=== PATIENT | female | born 1995 | race Caucasian/White ===

== ENCOUNTER 2025-02-03 13:34 | Emergency (ER) | payer BC, MEDICAID, SELFPAY ==
[2025-02-03 13:34] VITALS: BMI 38.6
[2025-02-03 14:03] VITALS: BP 112/70; PULSE 104; RESP 18; TEMP 37.1; O2SAT 100
--- NOTE | 2025-02-03 14:18 | PD.EDFEVER ---
ED Fever RME/HPI General Chief Complaint: Fever Stated Complaint: FEVER WITH BACK PAIN Time Seen by Provider: 02/03/25 13:42 Arrival date/time: 02/03/25 13:34 This is a 30-year-old female that comes into the emergency room with complaints of fever and lower back pain that started yesterday. Patient has no other upper respiratory symptoms such as runny nose cough sore throat. Patient has had a history of a gastric sleeve surgery. Related Data Previous Rx's ?Medication ?Instructions ?Recorded sulfamethoxazole 800 1 tab PO BID #14 tabs 06/26/21 mg-trimethoprim 160 mg tablet (Bactrim DS) doxycycline hyclate 100 mg capsule 100 mg PO BID #14 caps 09/07/21 loperamide 2 mg capsule (Imodium 2 mg PO Q6H PRN loose stool #14 02/24/22 A-D) caps cephalexin 500 mg capsule 500 mg PO QID #12 caps 05/26/23 cephalexin 500 mg capsule 500 mg PO TID 7 days #21 caps 02/03/25 Allergies Allergy/AdvReac Type Severity Reaction Status Date / Time Penicillins Allergy Mild Vomiting Verified 02/03/25 13:37 morphine Allergy Verified 02/03/25 13:37 Course Orders Category Date Time Status Bedside COVID-19 Antigen Test NOW Care 02/03/25 14:17 Active Bedside Influenza A&B Antigen Test NOW Care 02/03/25 14:17 Completed HCG Qualitative,Urine Stat Lab 02/03/25 14:31 Completed Urinalysis, C/S if Indicated Stat Lab 02/03/25 14:31 Completed Urine Culture Stat Lab 02/03/25 14:31 Received Acetaminophen Tab [Tylenol ES Tab] Med 02/03/25 15:46 Discontinued 1,000 mg PO X1 ONE Ibuprofen Tab [Motrin Tab] Med 02/03/25 14:17 Discontinued 800 mg PO X1 ONE cefTRIAXone [Rocephin] 1,000 mg Med 02/03/25 15:47 Discontinued Lidocaine 1% 20 ml [Xylocaine 1% 20 ML] 2.1 ml IM X1 Vital Signs Vital signs: Vital Signs Temperature 98.8 F 02/03/25 14:03 Pulse Rate 104 H 02/03/25 14:03 Respiratory Rate 18 02/03/25 14:03 Blood Pressure 112/70 02/03/25 14:03 Pulse Oximetry (%) 100 06/01/25 14:03 Oxygen Delivery Method Room Air 02/03/25 14:03 Fever MDM Narrative MDM Narrative:: Patient's influenza positive for influenza AMB. Patient's UA shows positive for UTI. Patient does states she is allergic to penicillins but it was when she was a baby and she does not remember what happened as far as reaction. I talked to her about doing a dose of Rocephin. Patient agreed to dose of Rocephin. Will discharge patient on antibiotics. Patient is to follow-up with primary provider in 1 to 2 days. Max emergency room today due to worsening Medications / Prescriptions Medication administrations:: Medication Administration History Discontinued Medications Acetaminophen (Acetaminophen 500 Mg Tablet) 1,000 mg PO X1 ONE Stop: 02/03/25 15:47 Last Admin: 02/03/25 15:52 Dose: 1,000 mg Documented By: DHEERAJ Ceftriaxone Sodium 1,000 mg/ (Lidocaine HCl 2.1 ml) 0 mg IM X1 ONE Stop: 02/03/25 15:48 Last Admin: 02/03/25 15:54 Dose: 1,000 mg Documented By: DHEERAJ Comments: 2.1 ml lido Ibuprofen (Ibuprofen Tab 400 Mg Tablet) 800 mg PO X1 ONE Stop: 02/03/25 14:18 Last Admin: 02/03/25 14:24 Dose: Not Given Documented By: ASIA Non-Admin Reason: Patient Refused Discharge Plan Plan Patient Disposition: HOME (Self Care) Patient condition on transfer: Stable Prescriptions/Referrals Prescriptions/Med Rec: New cephalexin 500 mg capsule 500 mg PO TID 7 Days Qty: 21 0RF No Action sulfamethoxazole-trimethoprim [Bactrim DS] 800-160 mg tablet 1 tab PO BID Qty: 14 0RF doxycycline hyclate 100 mg capsule 100 mg PO BID Qty: 14 0RF loperamide [Imodium A-D] 2 mg capsule 2 mg PO Q6H PRN (Reason: loose stool) Qty: 14 0RF cephalexin 500 mg capsule 500 mg PO QID Qty: 12 0RF Referrals: Bo Alexander DISTRICT PLANT SUPERINTENDENT [Primary Care Provider] - In 1 week Problem List Clinical Impression: Hematuria, Influenza, UTI (urinary tract infection) Patient/Caregiver Discharge Instructions Discharge Activity: activity as tolerated Education Materials: ED CYSTITIS Female Adult Additional Instructions: Follow up with primary provider in 1-2 days. Come back to ED if symptoms change or worsen Print Language: Icelandic Stand Alone Forms: Ирина Award Info., Patient Portal Info Letter, Work/School Release PA/[employer] Supervising Physician PA/[employer] Supervising Physician: siria
--- NOTE | 2025-02-03 14:24 | PC.NURSE ---
PT REFUSED MED BECAUSE OF GASTRIC BYPASS
[2025-02-03 14:54] LABS: Collection Type, Urine Voided
[2025-02-03 15:06] LABS: Bilirubin,Urine Negative (Negative); Blood,Urine 2+ (Negative); Clarity,Urine Turbid (Clear/Hazy); Color,Urine Lt-Yellow (Lt Yel-Yel); Glucose, Urine Negative (Negative); Ketones,Urine Negative (Negative); Leukocyte Esterase,Urine Positive (Negative); Nitrite,Urine Negative (Negative); PH,Urine 6.5 (5.0-7.0); Protein,Urine Trace (Neg - Trace); RBC,Urine 13 /hpf (0-3); Specific Gravity,Urine 1.012 (1.001-1.035); Squamous Epithelial Cell,Urine 6 /hpf (0-5); Urobilinogen,Urine Negative mg/dL (0.0-1.0); WBC,Urine 634 /hpf (0-5)
[2025-02-03 15:07] LABS: Culture Indicated,Urine Yes; HCG Qualitative,Urine Negative
[2025-02-03] MEDS: ACETAMINOPHEN 500 MG TABLET 1000 MG PO (15:52)
[2025-02-03] MEDS: cefTRIAXone 1,000 MG, LIDOCAINE 1% 20 ML 2.1 ML IM (15:54)
== END 2025-02-03 16:47 | disposition home or self-care (01) ==
PROVIDERS: Nurse Practitioner Family; Emergency Provider Emergency Medicine; PCP Nurse Practitioner Primary Care
DX: J11.1 Influenza due to unidentified influenza virus with other respiratory manifestations (principal); N39.0 Urinary tract infection, site not specified; R31.9 Hematuria, unspecified; Z88.0 Allergy status to penicillin
CPT/HCPCS: 81001; 81025; 87077; 87086; 87186; 87400; 87811; 96372; 99283; J0696; J3490; A9270

== ENCOUNTER 2025-04-06 06:55 | Emergency (ER) | payer BC, MEDICAID, SELFPAY ==
[2025-04-06 06:57] VITALS: BMI 36.8
[2025-04-06 07:13] VITALS: BMI 38.0
[2025-04-06 07:14] VITALS: BP 110/74; PULSE 72; RESP 18; TEMP 36.7; O2SAT 98
--- NOTE | 2025-04-06 07:17 | XR_ITS ---
Examination: CT abdomen and pelvis without contrast. Coronal 3-D reconstructions. Sagittal 2-D reconstructions. Date and time of exam:April 06, 2025 0908 hours INDICATIONS: Back pain and flank pain fever beginning 2 days ago CTDI: vol (mGy): 12 0.5 DLP: (mGyc 687 Technique: Axial images of the abdomen have been obtained, 3 mm slice thickness Intravenous contrast material has not been administered. Low dose protocols were performed. One or more of the following dose reduction techniques were used; automated exposure control, adjustment of the mA and/or KV according to patient size, use of iterative reconstruction technique. Findings: No focal liver or splenic lesions No gallstones No pancreatic or adrenal mass Moderate right renal parenchymal scar formation 2 mm calculus lower pole right kidney No hydronephrosis or ureteral calculi Normal appendix No bowel obstruction No bladder mass or bladder calculi Anteverted uterus IMPRESSION: 2 mm nonobstructing lower pole right renal calculus Moderate right renal parenchymal scar formation No hydronephrosis or renal calculi
[2025-04-06 08:37] LABS: Basophils # (Auto) 0.1 Thou/mm3 (0.0-0.2); Basophils % (Auto) 1 % (0-2.5); Eosinophils # (Auto) 0.1 Thou/mm3 (0.0-0.5); Eosinophils % (Auto) 1 % (0-10); Hematocrit 40.4 % (36.0-46.0); Hemoglobin 13.4 g/dL (12.0-16.0); Immature Granulocytes Auto 0.02 Thou/mm3 (0.00-0.00); Lymphocytes # (Auto) 1.9 Thou/mm3 (1.0-4.8); Lymphocytes % (Auto) 27 % (10-50); Mean Corpuscular HGB Conc 33.2 g/dl (31.0-37.0); Mean Corpuscular Hemoglobin 29.3 pg (25.0-35.0); Mean Corpuscular Volume 88 fL (80-100); Monocytes # (Auto) 0.5 Thou/mm3 (0.0-0.8); Monocytes % (Auto) 7 % (0-12); Neutrophils # (Auto) 4.4 Thou/mm3 (1.8-7.7); Neutrophils % (Auto) 63 % (37-80); Nucleated Red Blood Cell # 0.00 Thou/mm3 (0.00-0.00); Nucleated Red Blood Cell % 0 /100 WBC (0); Platelet Count 305 Thou/mm3 (140-440); RDW Standard Deviation 43.2 fL (36.4-46.3); Red Blood Count 4.57 Miln/mm3 (4.00-5.20); White Blood Count 7.0 Thou/mm3 (3.6-11.0)
[2025-04-06 08:40] LABS: Collection Type, Urine Clean Catch; HCG Qualitative,Urine Negative
[2025-04-06 08:43] LABS: Bacteria,Urine 1+; Bilirubin,Urine Negative (Negative); Blood,Urine Negative (Negative); Clarity,Urine Clear (Clear/Hazy); Color,Urine Lt-Yellow (Lt Yel-Yel); Culture Indicated,Urine Yes; Glucose, Urine Negative (Negative); Ketones,Urine Trace (Negative); Leukocyte Esterase,Urine Positive (Negative); Nitrite,Urine Negative (Negative); PH,Urine 7.5 (5.0-7.0); Protein,Urine Negative (Neg - Trace); RBC,Urine 1 /hpf (0-3); Specific Gravity,Urine 1.021 (1.001-1.035); Squamous Epithelial Cell,Urine 3 /hpf (0-5); Urobilinogen,Urine Negative mg/dL (0.0-1.0); WBC,Urine 13 /hpf (0-5)
[2025-04-06 09:23] LABS: Alanine Aminotransferase 25 U/L (10-49); Albumin, Serum 4.3 gm/dL (3.5-5.0); Albumin/Globulin Ratio 1.7 (1.2-2.2); Alkaline Phosphatase 52 U/L (46-116); Anion Gap 8 (7-16); Aspartate Amino Transferase 18 U/L (0-34); BUN/Creatinine Ratio 23 Ratio (12-20); Bilirubin,Total 0.3 mg/dL (0.3-1.2); Blood Urea Nitrogen 14 mg/dL (9-23); Calcium 9.1 mg/dL (8.3-10.6); Calcium (Corrected) 9.1 mg/dL (8.5-10.1); Carbon Dioxide 27.3 mMol/L (20.0-31.0); Chloride 105 mMol/L (98-107); Creatinine (Component) 0.6 mg/dL (0.6-1.3); Estimated Creatinine Clearance 153.9 mL/min (>60); Globulin 2.5 gm/dL (2.3-3.5); Glucose 88 mg/dL (74-106); Lipase 39 U/L (12-53); Osmolality,Calculated 278 (275-295); Potassium 4.0 mMol/L (3.4-5.1); Sodium 140 mMol/L (136-145); Total Protein 6.8 gm/dL (5.7-8.2); eGFR > 60 See Note
--- NOTE | 2025-04-06 10:20 | PD.EDADULT ---
ED General RME/HPI General Chief complaint: General Adult/Misc Complain Stated complaint: LOW BACK PAIN , FEVER NO APPETITE Time Seen by Provider: 04/06/25 07:34 Arrival date/time: 04/06/25 06:55 30-year-old female presents emergency department today for complaints of nausea lower back pain and dysuria symptom onset yesterday Limitations: no limitations Related Data Previous Rx's ?Medication ?Instructions ?Recorded sulfamethoxazole 800 1 tab PO BID #14 tabs 06/26/21 mg-trimethoprim 160 mg tablet (Bactrim DS) doxycycline hyclate 100 mg capsule 100 mg PO BID #14 caps 09/07/21 loperamide 2 mg capsule (Imodium 2 mg PO Q6H PRN loose stool #14 02/24/22 A-D) caps cephalexin 500 mg capsule 500 mg PO QID #12 caps 05/26/23 ciprofloxacin HCl 500 mg tablet 500 mg PO BID 7 days #14 tabs 04/06/25 ibuprofen 600 mg tablet 600 mg PO Q6H #30 tabs 04/06/25 ondansetron 4 mg disintegrating 4 mg PO Q8H PRN nausea and 04/06/25 tablet vomiting #10 tabs phenazopyridine 100 mg tablet 100 mg PO TID 2 days #6 tabs 04/06/25 (Pyridium) Allergies Allergy/AdvReac Type Severity Reaction Status Date / Time Penicillins Allergy Mild Vomiting Verified 04/06/25 07:06 morphine Allergy Verified 04/06/25 07:06 Review of Systems Review of Systems Systems Reviewed: All systems reviewed, normal except as documented Constitutional Constitutional: Reports system reviewed and no additional complaints, except as documented, Denies fever(s) and Denies headache(s) Eyes Eyes: Reports system reviewed and no additional complaints, except as documented and Denies blurry vision ENT Ears, Nose, Mouth, and Throat: Reports system reviewed and no additional complaints, except as documented, Denies headache(s), Denies nasal congestion and Denies nasal discharge Cardiovascular Cardiovascular: Reports system reviewed and no additional complaints, except as documented, Denies chest pain and Denies dyspnea Respiratory Respiratory: Reports system reviewed and no additional complaints, except as documented, Denies chest congestion, Denies cough and Denies dyspnea Gastrointestinal Gastrointestinal: Reports system reviewed and no additional complaints, except as documented, Reports abdominal pain, Reports nausea and Denies vomiting Genitourinary Genitourinary: Reports system reviewed and no additional complaints, except as documented, Denies abnormal vaginal bleeding, Reports dysuria and Denies flank pain Integumentary/Breasts Skin/Breast: Reports system reviewed and no additional complaints, except as documented and Denies rash Neurologic Neurologic: Reports system reviewed and no additional complaints, except as documented, Reports as per HPI and Denies headache(s) Past Medical History Past Medical History CARDIAC: Positive Hypertension; Negative Congestive Heart Failure RESPIRATORY: Negative Chronic Obstructive Pulmonary Disease (COPD) GASTROINTESTINAL: Positive Colitis GENITOURINARY: Negative Renal Disease ENDOCRINE: Negative Diabetes Mellitus Type 1 or Diabetes Mellitus Type 2 Social History SMOKING STATUS: Never smoker ED Exam General Limitations: Present no limitations General appearance: Present alert and in no apparent distress Head Head exam: Present atraumatic, normocephalic and normal inspection Eye Eye exam: Present normal appearance, PERRL and EOMI; Absent conjunctival injection ENT ENT exam: Present normal exam, normal oropharynx and mucous membranes moist Neck Neck exam: Present normal inspection, full ROM and trachea midline Chest Chest inspection: Present normal inspection and symmetric chest wall rise Respiratory Respiratory exam: Present normal lung sounds bilaterally; Absent respiratory distress Cardiovascular Cardiovascular exam: Present regular rate, normal rhythm and normal heart sounds Abdominal Exam Abdominal exam: Present soft and normal bowel sounds; Absent distention, tenderness, guarding, rebound or rigidity Extremities Exam Extremities exam: Present normal inspection and full ROM Back Exam Back exam: Present normal inspection and full ROM Neurological Exam Neurological exam: Present alert, oriented X3, CN II-XII intact, normal gait and reflexes normal; Absent motor sensory deficit Psychiatric Psychiatric exam: Present normal affect and normal mood Skin Skin exam: Present warm, dry, intact and normal color Course Quality Measures none Orders Category Date Time Status CT abdomen pelvis wo con Stat Exams 04/06/25 07:17 Completed CBC Stat Lab 04/06/25 08:20 Completed Comprehensive Metabolic Panel Stat Lab 04/06/25 08:20 Completed HCG Qualitative,Urine Stat Lab 04/06/25 07:59 Completed Lipase Stat Lab 04/06/25 08:20 Completed UA, C/S IF [Urinalysis, C/S if Indicated] Stat Lab 04/06/25 07:59 Completed Urine Culture Stat Lab 04/06/25 07:59 Received Ketorolac Inj [Toradol Inj] Med 04/06/25 10:09 Discontinued 30 mg IM X1 ONE Ondansetron Odt [Zofran Odt] Med 04/06/25 10:09 Discontinued 4 mg PO X1 ONE Vital Signs Vital signs: Vital Signs Temperature 98.1 F 04/06/25 07:14 Pulse Rate 72 04/06/25 07:14 Respiratory Rate 18 04/06/25 07:14 Blood Pressure 110/74 04/06/25 07:14 Pulse Oximetry (%) 98 04/06/25 07:14 Oxygen Delivery Method Room Air 04/06/25 07:14 O2 saturation 98% room air within normal limits Discharge Plan Plan Patient Disposition: HOME (Self Care) Discharge Disposition comment: stable Prescriptions/Referrals Prescriptions/Med Rec: New ciprofloxacin HCl 500 mg tablet 500 mg PO BID 7 Days Qty: 14 0RF phenazopyridine [Pyridium] 100 mg tablet 100 mg PO TID 2 Days Qty: 6 0RF ibuprofen 600 mg tablet 600 mg PO Q6H Qty: 30 0RF ondansetron 4 mg tablet,disintegrating 4 mg PO Q8H PRN (Reason: nausea and vomiting) Qty: 10 0RF No Action sulfamethoxazole-trimethoprim [Bactrim DS] 800-160 mg tablet 1 tab PO BID Qty: 14 0RF doxycycline hyclate 100 mg capsule 100 mg PO BID Qty: 14 0RF loperamide [Imodium A-D] 2 mg capsule 2 mg PO Q6H PRN (Reason: loose stool) Qty: 14 0RF cephalexin 500 mg capsule 500 mg PO QID Qty: 12 0RF Referrals: Bo Alexander NP [Primary Care Provider] - 04/08/25 Problem List Clinical Impression: UTI (urinary tract infection) Patient/Caregiver Discharge Instructions Education Materials: When to Use Antibiotics Additional Instructions: Please follow up with your primary care doctor in the next 24-48hrs for any worsening symptoms return here immediately Print Language: Danish Stand Alone Forms: Ирина Award Info., Patient Portal Info Letter PA/HYDRAULIC STRAINER OPERATOR Supervising Physician PA/HYDRAULIC STRAINER OPERATOR Supervising Physician: Dr malia BATRES Narrative MDM hospital course: 30-year-old female presents emergency department today for complaints of nausea lower back pain and dysuria symptom onset yesterday On exam patient well-appearing patient does not appear ill or toxic in no acute distress Lab work and imaging obtained UA consistent UTI CT scan no acute emergent findings noted Patient be treated symptomatically should symptoms persist or worsen patient may instructed return medially for further evaluation Clinical Information Provided by patient Medical Records Reviewed [facility] Meds/Rx Considered, not Ordered Describe details: Given Labs/Rad/Tests considered, not Ordered Describe details: Obtained Chronic Illness/Social Conditions which may negatively complicate care or outcome(s)-explain: None or not applicable EKG EKG not done Lab Interpretation Labs: interpreted by me Imaging Imaging interpretation: see narrative above Radiology reports / interpretation(s): Radiology obtain Medication Administration(s) Medication Administration History Discontinued Medications Ketorolac Tromethamine (Ketorolac Inj 30 Mg/Ml Vial) 30 mg IM X1 ONE Stop: 04/06/25 10:10 Last Admin: 04/06/25 10:22 Dose: Not Given Documented By: SULTANA Non-Admin Reason: Patient Refused Ondansetron HCl (Ondansetron Odt 4 Mg Tabrap) 4 mg PO X1 ONE; Protocol Stop: 04/06/25 10:10 Last Admin: 04/06/25 10:22 Dose: 4 mg Documented By: SULTANA Given Diagnosis Differential diagnosis: UTI, pyelonephritis, cystitis Most likely dx, and/or detailed dx discussion: UTI Dispositon Disposition: Discharge Home
[2025-04-06] MEDS: ONDANSETRON ODT 4 MG TABRAP PO (10:22)
== END 2025-04-06 10:32 | disposition home or self-care (01) ==
PROVIDERS: Emergency Provider Nurse Practitioner Primary Care; PCP Nurse Practitioner Primary Care
DX: N39.0 Urinary tract infection, site not specified (principal); M54.50 Low back pain, unspecified; R10.9 Unspecified abdominal pain; R50.9 Fever, unspecified
CPT/HCPCS: 36415; 74176; 80053; 81001; 81025; 83690; 85025; 87077; 87086; 87186; 99283; Q0162

== ENCOUNTER 2025-06-25 12:32 | Emergency (ER) | payer BC, MEDICAID, SELFPAY ==
[2025-06-25 12:33] VITALS: BMI 35.4
[2025-06-25 12:58] VITALS: BP 125/80; PULSE 77; RESP 16; TEMP 36.9; O2SAT 99
[2025-06-25 13:55] LABS: Strep A Rapid Negative (Negative)
--- NOTE | 2025-06-25 13:57 | EDNOTE_ITS ---
<Statement entered by Mabel Bhandari MD - 06/25/25 15:21> As co-signing physician, I was present and available for consult prn. I concur with the plan and care as documented by the midlevel provider. ED Dental RME/HPI General Chief complaint: Dental/Oral/Throat Stated complaint: SORE THROAT Time Seen by Provider: 06/25/25 13:06 Source: patient Arrival date/time: 06/25/25 12:32 30-year-old female with no known medical history presents to the emergency room with a chief complaint of loss of voice x 2 days Mode of arrival: ambulatory Limitations: no limitations Related Data Previous Rx's ?Medication ?Instructions ?Recorded sulfamethoxazole 800 1 tab PO BID #14 tabs mg-trimethoprim 160 mg tablet (Bactrim DS) doxycycline hyclate 100 mg capsule 100 mg PO BID #14 c aps 09/07/21 loperamide 2 mg capsule (Imodium 2 mg PO Q6H PRN loose stool #14 02/24/22 A-D) caps cephalexin 500 mg capsule 500 mg PO QID #12 caps 05/26 ibuprofen 600 mg tablet 600 mg PO Q6H #30 tabs 04/06 ondansetron 4 mg disintegrating 4 mg PO Q8H PRN nausea and 04/06/25 tablet vomiting #10 tabs Allergies Allergy/AdvReac Type Severity Reaction Status Date / Time Penicillins Allergy Mild Vomiting Verified 06/25/25 12:35 morphine Allergy Verified 06/25/25 12:35 Review of Systems Review of Systems Systems Reviewed: All systems reviewed, normal except as documented Constitutional Constitutional: Reports system reviewed and no additional complaints, except as documented, Denies fatigue, Denies fever(s), Denies headache(s) and Denies weakness Eyes Eyes: Reports system reviewed and no additional complaints, except as documented, Denies blurry vision and Denies change in vision ENT Ears, Nose, Mouth, and Throat: Reports system reviewed and no additional complaints, except as documented, Denies otalgia, Denies headache(s), Denies nasal congestion, Denies throat swelling and Denies vertigo Cardiovascular Cardiovascular: Reports system reviewed and no additional complaints, except as documented, Denies chest pain, Denies dyspnea and Denies dyspnea on exertion Respiratory Respiratory: Reports system reviewed and no additional complaints, except as doc umented, Denies chest congestion, Denies cough, Denies dyspnea, Denies dyspnea on exertion and Denies wheezing Gastrointestinal Gastrointestinal: Reports system reviewed and no additional complaints, except as documented, Denies abdominal pain, Denies cramping, Denies nausea and Denies vomiting Genitourinary Genitourinary: Reports system reviewed and no additional complaints, except as documented Musculoskeletal Musculoskeletal: Reports system reviewed and no additional complaints, except as documented and Denies back pain Integumentary/Breasts Skin/Breast: Reports system reviewed and no additional complaints, except as documented and Denies wounds Neurologic Neurologic: Reports system reviewed and no additional complaints, except as documented, Denies confusion, Denies headache(s), Denies lack of coordination, Denies vertigo and Denies weakness Psychiatric Psychiatric: Reports system reviewed and no additional complaints, except as documented, Denies anxiety, Denies confusion, Denies depression, Denies paranoia, Denies suicidal ideation and Denies tactile hallucinations Endocrine Endocrine: Reports system reviewed and no additional complaints, except as documented and Denies fatigue Hematologic/Lymphatic Hematologic/Lymphatic: Reports system reviewed and no additional complaints, except as documented and Denies lymphadenopathy Allergic/Immunologic Allergic/Immunologic: Reports system reviewed and no additional complaints, except as documented, Denies throat swelling, Denies urticaria and Denies wheezing ED Exam General Limitations: Present no limitations General appearance: Present alert and in no apparent distress Head Head exam: Present atraumatic Eye Eye exam: Present normal appearance, PERRL and EOMI ENT ENT exam: Present normal exam, normal oropharynx and mucous membranes moist Neck Neck exam: Present normal inspection, full ROM and trachea midline Chest Chest inspection: Present normal inspection and symmetric chest wall rise Respiratory Respiratory exam: Present normal lung sounds bilaterally Cardiovascular Cardiovascular exam: Present regular rate, normal rhythm and normal heart sounds Abdominal Exam Abdominal exam: Present soft and normal bowel sounds Extremities Exam Extremities exam: Present normal inspection and full ROM Back Exam Back exam: Present normal inspection and full ROM Neurological Exam Neurological exam: Present alert, oriented X3 and CN II-XII intact Psychiatric Psychiatric exam: Present normal affect and normal mood Skin Skin exam: Present warm, dry, intact and normal color Course Quality Measures none Orders Category Date Time Status Strep A Rapid Stat Lab 06/25/25 13:10 Completed Vital Signs Vital signs: Vital Signs Temperature 98.5 F 06/25/25 12:58 Pulse Rate 77 06/25/25 12:58 Respiratory Rate 16 06/25/25 12:58 Blood Pressure 125/80 06/25/25 12:58 Pulse Oximetry (%) 99 06/25/25 12:58 Oxygen Delivery Method Room Air 06/25/25 12:58 Dental / Oral MDM Narrative MDM Narrative:: 30-year-old female with no known medical history presents to the emergency room with a chief complaint of loss of voice x 2 days Patient is hemodynamically stable and in no apparent distress Strep test was negative for any pharyngitis. Patient denies any other signs or symptoms. Patient denies any congestion chest pain stomach pain and states her only symptom is she lost her voice and is only whispering. Patient was discharged and educated to follow-up with primary care provider in the next 24 to 48 hours and return to the emergency room for any evidence of worsening signs or symptoms Patient data External records reviewed:: [facility] previous records Clinical information provided by:: patient Social determinants that could affect healthcare access:: none Patient has the following chronic illnesses:: No chronic illness How is presenting disease/condition affected by chronic disease/condition?: no chronic disease Evaluation data The following diagnostics were reviewed and interpreted by me:: lab results and radiology exam(s) Lab and/or radiology exams considered but not ordered:: Labs and radiology exams considered and ordered Interpretation Summary: N/A Medications / Prescriptions Medications or Prescriptions considered but not ordered:: No medication given Medication administrations:: No medication given Consultations Consultation(s) initiated? (list below): No Diagnosis Dental Differential Diagnosis: other (Loss of voice/pharyngitis) Most likely diagnosis given after review of the tests above:: Loss of voice Admission Indicated Admission indicated?: not indicated Admission Request Was there a request for admission?: No Disposition Plan Disposition Plan: Discharge Discharge Attestation Discharge Attestation: The patient and all family members were given an opportunity to ask questions and understood the discharge instructions. Discharge instructions specifically effects, indications for sooner follow up or return to the emergency department, and the expected course of current diagnosis. Patient condition: Stable Discharge Plan Plan Patient Disposition: HOME (Self Care) Discharge Disposition comment: Stable Prescriptions/Referrals Prescriptions/Med Rec: No Action sulfamethoxazole-trimethoprim [Bactrim DS] 800-160 mg tablet 1 tab PO BID Qty: 14 0RF doxycycline hyclate 100 mg capsule 100 mg PO BID Qty: 14 0RF loperamide [Imodium A-D] 2 mg capsule 2 mg PO Q6H PRN (Reason: loose stool) Qty: 14 0RF cephalexin 500 mg capsule 500 mg PO QID Qty: 12 0RF ibuprofen 600 mg tablet 600 mg PO Q6H Qty: 30 0RF ondansetron 4 mg tablet,disintegrating 4 mg PO Q8H PRN (Reason: nausea and vomiting) Qty: 10 0RF Referrals: No Primary/Family,Physician [Primary Care Provider] - In 1 week Problem List Clinical Impression: Loss of voice Patient/Caregiver Discharge Instructions Additional Instructions: Please follow-up with your primary care provider in the next 24 to 48 hours Your strep test was negative for any acute findings For any evidence of worsening signs or symptoms return to emergency room immediately Print Language: Serbian Stand Alone Forms: Ирина Award Info., Patient Portal Info Letter PA/MAJOR GIFTS MANAGER Supervising Physician PA/MAJOR GIFTS MANAGER Supervising Physician: Dr. Calderon
== END 2025-06-25 14:42 | disposition home or self-care (01) ==
PROVIDERS: Nurse Practitioner Family; Emergency Provider Emergency Medicine
DX: R49.1 Aphonia (principal)
CPT/HCPCS: 87651; 99281